=== PATIENT | female | born 1945 | race Caucasian/White ===

== ENCOUNTER 2018-09-25 13:00 | Inpatient (IN) | payer MEDICARE, OTHER ==
[~2018-09-25] VITALS: Ht 160 cm; Wt 96.5 kg
[~2018-09-25 13:00] MED LIST: ACYC800 PO; ALBU90OI INH; ALIS150T PO; AMLO10 PO; ASPI81CH; ASPI81EC PO; ATEN50; CARV6.25; CARV6.25 PO; CARVEDILOL; CEPH500 PO; CHOLESTEROL MED; Carvedilol12.5 MG PO; GLIP10; GLIP10 PO; HYDACE10B PO; HYDACE5 PO; IBUP600 PO; INSLI100I; INSLI100I SUBQ; INSULANI; INSULANI SUBQ; MELO7.5; METF500; METF500 PO; NAPR500 PO; Norco 5-325 Ta1 EACH PO; OXYACE5T PO; OXYACE7.5T; PARO10; PARO20; PARO20 PO; PARO30; PERM5TC TOP; PRAV20; PRAV20 PO; PRED20 PO; PROM25 PO; RAMI5; RAMI5 PO; SOLI5 PO; TRAM50 PO; Zofran Odt8 MG SL
[2018-09-25 14:16] LABS: Alanine Aminotransfer (ALT/SGP 11 U/L (12-78); Albumin, Blood 2.6 g/dL (3.4-5.0); Albumin/Globulin Ratio 0.5 (0.8-1.8); Alk Phos 99 U/L (50-136); Anion Gap 3 mmol/L (6-16); Aspartate Aminotrans (AST/SGOT 6 U/L (12-37); Bilirubin, Total 1.3 mg/dL (0.1-1.0); Blood Urea Nitrogen 10 mg/dL (8-24); Bun/Creatinine Ratio 18.6 (12.0-20.0); CO2, Blood 34 mmol/L (21-32); Calcium, Blood 8.2 mg/dL (8.5-10.1); Chloride, Blood 96 mmol/L (98-108); Creatinine, Blood 0.54 mg/dL (0.40-1.00); Globulin, Blood 5.4 g/dL (2.2-4.0); Glomerular Filtration Rate >60 (60-); Glucose, Blood 219 mg/dL (70-99); Potassium, Blood 3.4 mmol/L (3.5-5.5); Sodium, Blood 133 mmol/L (136-145)
[2018-09-25 14:19] LABS: BASOPHILS ABSOLUTE AUTO 0.02 K/mm3 (0.00-0.23); BASOPHILS PERCENT AUTO 0 % (0-2); EOSINOPHILS ABSOLUTE AUTO 0.01 K/mm3 (0.00-0.68); EOSINOPHILS PERCENT AUTO 0 % (0-6); Hematocrit 38.7 % (33.0-51.0); Hemoglobin 12.2 g/dL (11.5-16.0); IMMATURE GRAN ABSOLUTE AUTO 0.06 K/mm3 (0.00-0.10); IMMATURE GRAN PERCENT AUTO 1 % (0-1); LYMPHOCYTES ABSOLUTE AUTO 1.23 K/mm3 (0.84-5.20); LYMPHOCYTES PERCENT AUTO 10 % (21-46); MONOCYTES ABSOLUTE AUTO 1.21 K/mm3 (0.16-1.47); MONOCYTES PERCENT AUTO 10 % (4-13); Mean Corpuscular HGB 26.4 pg (26.0-34.0); Mean Corpuscular HGB Conc 31.5 g/dL (31.5-36.5); Mean Corpuscular Volume 84 fL (80-100); Mean Platelet Volume 9.6 fL (9.1-12.4); NEUTROPHILS ABSOLUTE AUTO 10.14 K/mm3 (1.96-9.15); NEUTROPHILS PERCENT AUTO 80 % (41-73); Platelet Count 358 K/mm3 (150-400); RDW Coefficient Variation 15.1 % (11.7-14.2); RDW Standard Deviation 46.3 fL (35.1-46.3); Red Blood Cell Count 4.62 M/mm3 (3.80-5.20); White Blood Cell Count 12.67 K/mm3 (4.00-11.30)
[2018-09-25 15:08] LABS: International Normalized Ratio 1.11; Prothrombin Time Results 11.7 Sec (9.7-11.5)
--- NOTE | 2018-09-25 18:24 | NUR ---
HANDOFF/TRANSFER NOTE RECEIVED HANDOFF REPORT FROM ER NURSE VILMA. PT IS 73. ADMIT FOR SEPSIS/PNEUMONIA SECONDARY TO FLU. PT IS FULL CODE. PT CAME TO FLOOR HYPERTENSIVE, TACHYCARDIC, AND TACHYPNEIC WITH A LOW GRADE FEVER . PT DENIES TAKING MORNING MEDICATIONS. I CALLED HOSPITALIST AND HE ORDERED BP MEDS TO BE GIVEN NOW. PT HX:DM2, HTN, ASTHMA, COPD, HERNIA. SHE DOES HAVE A POORLY HEALED LARGE SCAB ON HER ABDOMEN. I WAS TOLD SHE IS A&O X4 WHEN AWAKE, I DISAGREE AT THIS TIME. I DO FIND HER TO BE CONFUSED AND UNAWARE OF HER OWN LIMITATIONS. SHE IS AT LEAST A 1 PERSON ASSIST W/A FWW. SHE REFUSES TO USE A BSC AT THIS TIME. SHE NORMALLY USES A CANE AT HOME. SHE IS ON 2 LPM VIA NC. HER LUNGS ARE DIM THROUGHOUT. ADA DIET AND ACHS - LOW SLIDING SCALE. SHE SEEMED TO CHOKE WHEN I GAVE HER SIPS OF WATER WITH HER MEDS UPON ARRIVAL. JIM HOSE IS ORDERED. SHE IS IN A CHAIR AT PRESENT WITH AN ALARM SET
[2018-09-26 02:28] LABS: Influenza A Negative (NEGATIVE); Influenza B Negative (NEGATIVE)
[2018-09-26 05:31] LABS: BASOPHILS ABSOLUTE AUTO 0.02 K/mm3 (0.00-0.23); BASOPHILS PERCENT AUTO 0 % (0-2); EOSINOPHILS ABSOLUTE AUTO 0.04 K/mm3 (0.00-0.68); EOSINOPHILS PERCENT AUTO 0 % (0-6); Hematocrit 35.3 % (33.0-51.0); Hemoglobin 10.8 g/dL (11.5-16.0); IMMATURE GRAN ABSOLUTE AUTO 0.04 K/mm3 (0.00-0.10); IMMATURE GRAN PERCENT AUTO 0 % (0-1); LYMPHOCYTES ABSOLUTE AUTO 1.49 K/mm3 (0.84-5.20); LYMPHOCYTES PERCENT AUTO 14 % (21-46); MONOCYTES ABSOLUTE AUTO 1.26 K/mm3 (0.16-1.47); MONOCYTES PERCENT AUTO 12 % (4-13); Mean Corpuscular HGB Conc 30.6 g/dL (31.5-36.5); Mean Corpuscular Volume 85 fL (80-100); Mean Platelet Volume 9.6 fL (9.1-12.4); NEUTROPHILS ABSOLUTE AUTO 7.71 K/mm3 (1.96-9.15); NEUTROPHILS PERCENT AUTO 73 % (41-73); Platelet Count 331 K/mm3 (150-400); RDW Coefficient Variation 15.1 % (11.7-14.2); RDW Standard Deviation 47.3 fL (35.1-46.3); Red Blood Cell Count 4.15 M/mm3 (3.80-5.20); White Blood Cell Count 10.56 K/mm3 (4.00-11.30)
[2018-09-26 06:06] LABS: Anion Gap 4 mmol/L (6-16); Blood Urea Nitrogen 10 mg/dL (8-24); Bun/Creatinine Ratio 19.5 (12.0-20.0); CO2, Blood 31 mmol/L (21-32); Calcium, Blood 7.8 mg/dL (8.5-10.1); Chloride, Blood 101 mmol/L (98-108); Creatinine, Blood 0.51 mg/dL (0.40-1.00); Glomerular Filtration Rate >60 (60-); Glucose, Blood 185 mg/dL (70-99); Potassium, Blood 3.6 mmol/L (3.5-5.5); Sodium, Blood 136 mmol/L (136-145)
--- NOTE | 2018-09-26 06:42 | NUR ---
NOC SHIFT SUMMARY PT HAS BEEN VERY ANXIOUS THIS NIGHT. VS HAVE BEEN STABLE. SHE IS GENERALY VERY WEAK AND UNSTEADY ON HER FEET. SHE HAS ATTEMPTED MULTIPLE TIMES TO GET OUT OF BED WITHOUG USING HER CALL LIGHT TO SUMMON ASSISTENCE. BECAME NECESSARY TO RESTRAIN PT WITH IVY VEST SHE IS A STONG FALL RISK. ORDER FOR IVY OBTIANED AT 0149 THIS NIGHT. PT HAS TOLERATED IVY WELL. PT IS CURRENTLY SLEEPING. RESP ARE EVEN AND UNLABORED. CALLED TO DAUGHTER, ZENIA, THIS MORNING TO LET HER KNOW OF USE OF RESTAINT. SHE VERBALIZED UNDERSTANDING AND DID NOT VOICE ANY DISAGREEMENT WITH THIS. PT CURRENTLY APPEARS IN NO ACUTE DISTRESS. WILL CONTINUE TO MONITOR.
[2018-09-26 13:57] LABS: Campylobacter Sp Not Detected (NOT DETECT); E. Coli O157 Not Detected (NOT DETECT); Enteroaggregative E. coli-EAEC Not Detected (NOT DETECT); Enteropathogenic E. coli-EPEC Not Detected (NOT DETECT); Enterotoxigenic E. coli-ETEC Not Detected (NOT DETECT); Plesiomonas Shigelloides Not Detected (NOT DETECT); Salmonella Sp Not Detected (NOT DETECT); Shiga Toxin-prod E. coli-STEC Detected (NOT DETECT); Vibrio Cholerae Not Detected (NOT DETECT); Vibrio Sp Not Detected (NOT DETECT); Yersinia Enterocolitica Not Detected (NOT DETECT)
[2018-09-26 13:58] LABS: Adenovirus F 40/41 Not Detected (NOT DETECT); Astrovirus Not Detected (NOT DETECT); Cryptosporidium Not Detected (NOT DETECT); Cyclospora Cayetanensis Not Detected (NOT DETECT); Entamoeba Histolytica Not Detected (NOT DETECT); Giardia Lamblia Not Detected (NOT DETECT); Norovirus GI/GII Not Detected (NOT DETECT); Rotavirus A Not Detected (NOT DETECT); Sapovirus Not Detected (NOT DETECT); Shigella/Enteroin E. coli-EIEC Not Detected (NOT DETECT)
--- NOTE | 2018-09-26 14:36 | NUR ---
Permission for care Patient gave nursing support worker permission to assist in providing care on 09.27.2018 from [phone]. Maye Massey
--- NOTE | 2018-09-26 17:35 | NUR ---
PATIENT A/O TO ALL, BUT STRUGGLES WITH FOLLOWING DIRECTIONS AND REQUIRES MULTIPLE QUES FOR SIMPLE TASK. LUNGS DIMINISHED THROUGHOUT, 3LO2 TO MAINTAIN SATS. PATIENT IN IVY VEST FOR SAFETY. CONTINUES TO TRY AND GET UP UNASSISTED. FALL PRECAUTIONS IN PLACE PER UNIT PROTOCOL. VSS THIS SHIFT. MULIPLE EPISODES OF DIARRHEA THIS SHIFT. GI PANEL CAME BACK POSITIVE FOR E. COLI WITH SHIGA TOXIN. PATIENT ON CONTACT PRECAUTIONS FOR THIS DUE TO INCONTINENCE. 20G IV TO L AC WNL AND SL BETWEEN ABX.
[2018-09-27 03:21] LABS: Source, Urine Clean Catch
[2018-09-27 03:23] LABS: Appearance, Urine Clear (Clear); Bilirubin, Urine Neg (Neg); Blood, Urine 3+ (Neg); Color, Urine Amber (P-Yellow); Glucose Qualitative, Urine 2+ (Neg); Ketones, Urine Neg (Neg); Leukocyte Esterase, Urine Neg (Neg); Nitrite, Urine Neg (Neg); Protein, Urine 2+ (Neg); Urobilinogen, Urine 2+ (Normal)
[2018-09-27 03:29] LABS: Bacteria Mod /hpf; Red Blood Cells, Urine 0-2 /hpf (0-2); Squamous Epithelial Cells Mod /hpf (Few)
--- NOTE | 2018-09-27 04:59 | NUR ---
SHIFT SUMMARY PT ADMITTED FOR SEPSIS SECONDARY TO PNEUMONIA. FULL CODE. ADA DIET. IVY VEST IN PLACE FOR SAFETY. CBG AT AC AND HS. LOVENOX FOR DVT PROPHYLAXIS. MEDICATIONS CRUSHED IN APPLESAUCE. 2 PERSON MAX ASSIST WITH TRANSFER TO BSC. 2L O2 VIA NC, PT DOES NOT USE O2 AT HOME PRIOR TO THIS HOSPITAL STAY. IVY ORDER RENEWAL DUE AT 0023 ON 09-28-18. 20G IV TO L AC. SPUTUM SAMPLE NEEDS COLLECTED TO CULTURE, UNABLE TO OBTAIN PT IS NOT COUGHING ANYTHING UP. UA SENT AND CULTURE IS PENDING. PT CAME TO [facility] ED ABOUT A WEEK PRIOR TO THIS ADMIT WITH THE FLU BUT DID NOT TEST POSITIVE FOR IT THIS VISIT. THE X-RAY DID SHOW BIBASILAR INFLILTRATES SUGGESTIVE OF PNEUMONIA. THE STOOL SAMPLE WAS POSITIVE FOR E. COLI WITH SHIGA TOXIN AND THE PT IS ON CONTACT PRECAUTIONS FOR THIS DUE TO INCONTINENCE. WAS THE RECOMMENDATION FROM INFECTION CONTROL PER REPORT. THE PT WAS VERY CONFUSED THIS NIGHT NOT REMEMBERING WHAT IS GOING ON AND SCREAMING ALL NIGHT LONG. PT DOES NOT USE CALL LIGHT APPROPRIATELY AND YELLS FREQUENTLY. THE PT IS VERY FORGETFUL AND ONCE GETTING UP FORGETS WHAT PT WAS DOING JUST SECONDS PRIOR. THE PT SLEPT FOR A FEW HOURS OFF AND ON THIS NIGHT BUT IS AWAKE AGAIN AT THIS TIME YELLING OUT. NO APPARENT SIGNS OF ACUTE DISTRESS. WILL CONTINUE TO MONITOR.
--- NOTE | 2018-09-27 19:07 | NUR ---
PT. BACK IN BED AFTER BEING UP FOR DINNER. PT. HAS SLEPT OFF AND ON T/O THE DAY. WHEN PT. IS IN BED SHE HOLLERS TO BE UP IN THE CHAIR AND WHEN SHES UP IN THE CHAIR SHE HOLLERS TO BE PUT BACK IN BED. DOES COOPERATE WITH TAKING MEDS. NO NOTEABLE CHANGES THIS SHIFT.
--- NOTE | 2018-09-28 04:37 | NUR ---
SHIFT SUMMARY NO APPARENT ACUTE CHANGES NOTED SO FAR THIS SHIFT. THE PT HAS APPEARED TO INCREASE HER STRENGTH AND HAS BEEN A 1 PERSON ASSIST MOST OF THE NIGHT TO THE BSC. THE PT CONTINUES TO BE IMPULSIVE AND WILL GET UP VERY QUICKLY OUT OF BED. HOWEVER, INCREASED SENSITIVITY ON PTS BED ALARM AND AM IN THE PROCESS OF TRIAL WITHOUT IVY VEST. THE PT STATED THAT IVY VEST WAS MAKING IT DIFFICULT FOR PT TO BREATHE AND WAS YELLING OUT AND SCREAMING FREQUENTLY. SINCE TRIAL OF REMOVING VEST PT HAS STILL GOTTEN UP WITH POOR SAFETY AWARENESS AND POOR BALANCE BUT YELLING AND SCREAMING HAS BEEN MINIMAL. PT LIKE TO SIT AT BEDSIDE AT TIMES WHICH WAS ALLOWED WITH SUPERVISION UNTIL PT BACK TO BED WITH ALARM. THE PT HAS NOT APPEARED TO SLEEP REGULARLY THIS NIGHT. THE PT DOES APPEAR TO BE RESTING IN BED AT THIS TIME WITH NO APPARENT SIGNS OF ACUTE DISTRESS. FREQUENT VISUAL CHECKS PT IS NOT ABLE TO MAKE NEEDS KNOWN. WILL CONTIUE MONITOR.
--- NOTE | 2018-09-28 14:45 | NUR ---
Pt. is in bed and is doing much better encouraged pt and prayed for pt.
--- NOTE | 2018-09-28 18:55 | NUR ---
PT. UP IN CHAIR HAS BEEN HOLLERING OUT HELP, HELP AND WHEN ASKED WHAT SHE WANTS SAYS "I DON'T KNOW". NO NOTEABLE CHANGES THIS SHIFT.
--- NOTE | 2018-09-29 05:22 | NUR ---
SHIFT SUMMARY THE PT HAS BEEN CONTINENT THE ENTIRE NIGHT WITH NO INCONTIENT EPISODES OBSERVED OR REPORTED. THE PT IS NO LONGER IN IVY VEST RESTRAINT. THE PT CONTINUES TO BE IMPULSIVE WITH POOR SAFETY AWARENESS AND DOES NOT USE CALL LIGHT APPROPRIATELY. HOWEVER, THE PT DID USE CALL LIGHT APPROPRIATELY A FEW TIMES SO FAR THIS SHIFT. THE PT STILL DEMONSTRATES CONFUSION. THE PT DID NOT APPEAR TO SLEEP WELL AND WAS AWAKE OFF AND ON THROUGHOUT THE NIGHT. THE PT IS UP IN CHAIR AT THIS TIME WITH NO APPARENT SIGNS OF ACUTE DISTRESS. FREQUENT VISUAL CHECKS AND ALARMS FOR SAFETY. WILL CONTINUE TO MONITOR.
[2018-09-29 05:28] LABS: BASOPHILS ABSOLUTE AUTO 0.02 K/mm3 (0.00-0.23); BASOPHILS PERCENT AUTO 0 % (0-2); EOSINOPHILS ABSOLUTE AUTO 0.01 K/mm3 (0.00-0.68); EOSINOPHILS PERCENT AUTO 0 % (0-6); Hematocrit 37.9 % (33.0-51.0); IMMATURE GRAN PERCENT AUTO 1 % (0-1); LYMPHOCYTES ABSOLUTE AUTO 1.71 K/mm3 (0.84-5.20); LYMPHOCYTES PERCENT AUTO 18 % (21-46); MONOCYTES ABSOLUTE AUTO 0.69 K/mm3 (0.16-1.47); MONOCYTES PERCENT AUTO 7 % (4-13); Mean Corpuscular HGB 25.5 pg (26.0-34.0); Mean Corpuscular HGB Conc 31.7 g/dL (31.5-36.5); NEUTROPHILS PERCENT AUTO 74 % (41-73); RDW Coefficient Variation 14.6 % (11.7-14.2); RDW Standard Deviation 42.8 fL (35.1-46.3); Red Blood Cell Count 4.71 M/mm3 (3.80-5.20); White Blood Cell Count 9.73 K/mm3 (4.00-11.30)
[2018-09-29 05:35] LABS: Anion Gap 6 mmol/L (6-16); Blood Urea Nitrogen 16 mg/dL (8-24); Bun/Creatinine Ratio 24.8 (12.0-20.0); CO2, Blood 29 mmol/L (21-32); Calcium, Blood 8.9 mg/dL (8.5-10.1); Chloride, Blood 100 mmol/L (98-108); Creatinine, Blood 0.65 mg/dL (0.40-1.00); Glomerular Filtration Rate >60 (60-); Glucose, Blood 136 mg/dL (70-99); Potassium, Blood 5.2 mmol/L (3.5-5.5); Sodium, Blood 135 mmol/L (136-145)
[2018-09-29 06:29] LABS: Mean Corpuscular Volume 81 fL (80-100); Platelet Count 311 K/mm3 (150-400)
--- NOTE | 2018-09-29 13:13 | NUR ---
Pt. is lying in bed resting seems to be getting better, offered prayers and spiritual support
--- NOTE | 2018-09-29 19:10 | NUR ---
PT. BACK IN IVY VEST THIS EVENING. WOULD NOT USE CALL LIGHT, KEPT JUMPING OUT OF CHAIR , VERY HIGH RISK FOR FALLS SO IVY BED REPLACED. NO OTHER NOTEABLE CHANGES THIS SHIFT.
--- NOTE | 2018-09-29 23:22 | NUR ---
09/29/18 2320 PT YELLING AND VERY AGITATED. TRYING TO GET OUT OF BED. WHEN SHE WAS UP IN CHAIR SHE WAS YELLING ABOUT WANTING TO GO TO BED. PT ONLY ALERT TO SELF AT PRESENT. DENIES BEING IN HOSPITAL. IVY VEST IN PLACE. HALDOL 2.5 MG IV GIVEN WHEN INFORMED MD OF PT'S CONTINUAL AGITATION AND YELLING.
--- NOTE | 2018-09-30 07:24 | NUR ---
09/30/18 0610 YELLING AGAIN THIS AM. HAS BEEN INSTRUCTED GRAIN I FARMWORKER SYSTEM BUT STATES "I FORGOT". SLEPT ONLY COUPLE OF HOURS AFTER HALDOL GIVEN. UP TO BSC FOR VOIDINGS. VERY DISORIENTED LAST NIGHT AFTER 10 PM. VITALS STABLE.
--- NOTE | 2018-09-30 09:49 | NUR ---
PATIENT WAS OFFERED A SHOWER THIS SHIFT AND DECLINED BY STATING "NO" TO ME
--- NOTE | 2018-09-30 13:38 | NUR ---
Met pt. sitting up on her be, wishing to get up , she is okay offered prayers fore her.
--- NOTE | 2018-09-30 17:43 | NUR ---
SHIFT SUMMARY PATIENT CALLS OUT, VERY FORGETFUL. SHE IS IN A IVY AND VERY IMPULSIVE. GETS MILDLY AGRESSIVE WHEN SHE IS NOT ALLOWED TO DO WHAT SHE WANTS. SHE WANTS TO BE IN THE CHAIR.
--- NOTE | 2018-10-01 07:04 | NUR ---
SHIFT SUMMARY PT IS A 73 Y/O FEMALE, ADMITTED FOR SEPSIS. SHE IS A&O X 2, WILL YELL OUT AND WILL NOT USE THE CALL LIGHT. SHE SLEPT OFF AN ON FOR A COUPLE OF HOURS DURING THE NIGHT, AND WAS UP BETWEEN THE CHAIR AND BED THE REST OF THE NIGHT. SHE DENIED ANY COMPLAINTS OF PAIN, NAUSEA OR SOB. VITALS REMAINED STABLE. NO OTHER ACUTE CHANGES IN PT CONDITION NOTED DURING THE NIGHT. WILL CONTINUE TO MONITOR AND TREAT PER EMAR.
[2018-10-01] MEDS ORDERED: AZIT500 PO (13:27)
[2018-10-01] MEDS ORDERED: PRED20 PO (13:28)
--- NOTE | 2018-10-01 14:18 | NUR ---
DISCHARGE NOTES IV REMOVED. PATIENT INSTRUCTIONS GONE OVER WITH THE FAMILY MEMBER. NO ACUTE CONCERNS FROM THE PATIENT'S FAMILY. PATIENT STILL NOT IN HER RIGHT MIND. GOING HOME TO 24 HOUR CARE WITH HOME HEALTH.
== END 2018-10-01 13:55 | disposition home health service (06) | DRG 871 ==
LOC: ER 13:00 → MEDS 15:45 → ENPENDDIS 10-01 12:39 → MEDS 10-01 13:55
PROVIDERS: Emergency Medicine; Internal Medicine; ADMIT Hospitalist
DX: A41.9 Sepsis, unspecified organism (principal); J18.1 Lobar pneumonia, unspecified organism; J96.21 Acute and chronic respiratory failure with hypoxia; F03.91 Unspecified dementia, unspecified severity, with behavioral disturbance; J44.0 Chronic obstructive pulmonary disease with (acute) lower respiratory infection; J44.1 Chronic obstructive pulmonary disease with (acute) exacerbation; I10 Essential (primary) hypertension; E11.9 Type 2 diabetes mellitus without complications; E78.5 Hyperlipidemia, unspecified; R19.7 Diarrhea, unspecified; B96.20 Unspecified Escherichia coli [E. coli] as the cause of diseases classified elsewhere
CPT/HCPCS: 36415; 71045; 80048; 80053; 81001; 82947; 83605; 84145; 85025; 85610; 85730; 87040; 87086; 87507; 87804; 93005; 93010; 94640; 94760; 96361; 96365; 97116; 97162; 97530; 99285-25; J0456; J0696; J1630; J1650; J3480; J7030; J7050; J7120; J7512

== ENCOUNTER 2018-10-18 12:58 | Inpatient (IN) | payer MEDICARE, OTHER ==
[~2018-10-18] VITALS: Ht 167.6 cm; Wt 91.2 kg
[~2018-10-18 12:58] MED LIST changes: +AZIT500 PO; +Ramipril10 MG PO
[2018-10-18 14:16] LABS: Source, Urine Catheter
[2018-10-18 14:32] LABS: Bilirubin, Urine Neg (Neg); Blood, Urine 1+ (Neg); Glucose Qualitative, Urine Neg (Neg); Ketones, Urine 1+ (Neg); Leukocyte Esterase, Urine Neg (Neg); Nitrite, Urine Neg (Neg); Protein, Urine Neg (Neg); Urobilinogen, Urine NORM (Normal)
[2018-10-18 14:32] LABS: BASOPHILS ABSOLUTE AUTO 0.03 K/mm3 (0.00-0.23); BASOPHILS PERCENT AUTO 0 % (0-2); EOSINOPHILS ABSOLUTE AUTO 0.16 K/mm3 (0.00-0.68); EOSINOPHILS PERCENT AUTO 2 % (0-6); Hemoglobin 12.1 g/dL (11.5-16.0); IMMATURE GRAN ABSOLUTE AUTO 0.02 K/mm3 (0.00-0.10); IMMATURE GRAN PERCENT AUTO 0 % (0-1); LYMPHOCYTES ABSOLUTE AUTO 1.48 K/mm3 (0.84-5.20); LYMPHOCYTES PERCENT AUTO 16 % (21-46); MONOCYTES ABSOLUTE AUTO 0.47 K/mm3 (0.16-1.47); MONOCYTES PERCENT AUTO 5 % (4-13); Mean Corpuscular HGB 26.8 pg (26.0-34.0); Mean Corpuscular HGB Conc 31.8 g/dL (31.5-36.5); Mean Corpuscular Volume 84 fL (80-100); NEUTROPHILS ABSOLUTE AUTO 6.94 K/mm3 (1.96-9.15); NEUTROPHILS PERCENT AUTO 76 % (41-73); RDW Coefficient Variation 16.4 % (11.7-14.2); RDW Standard Deviation 50.4 fL (35.1-46.3); Red Blood Cell Count 4.51 M/mm3 (3.80-5.20)
[2018-10-18 14:39] LABS: Mean Platelet Volume 10.5 fL (9.1-12.4); Platelet Count 252 K/mm3 (150-400)
[2018-10-18 14:43] LABS: Appearance, Urine Clear (Clear); Color, Urine Yellow (P-Yellow)
[2018-10-18 14:44] LABS: Bacteria Few /hpf; Red Blood Cells, Urine 0-2 /hpf (0-2); Squamous Epithelial Cells Few /hpf (Few); White Blood Cells, Urine Not Seen /hpf (0-5)
[2018-10-18 14:49] LABS: U Amphetamine Screen DETECTED; U Barbituate Screen Not Detected; U Benzodiazapine Screen Not Detected; U Buprenorphine Screen Not Detected; U Cannabinoids Screen Not Detected; U Cocaine Screen Not Detected; U Methadone Screen Not Detected; U Methamphetamine Screen DETECTED; U Opiates Screen Not Detected; U Oxycodone Screen Not Detected; U Phencyclidine Screen Not Detected; U Propoxyphene Screen Not Detected
[2018-10-18 14:50] LABS: Alanine Aminotransfer (ALT/SGP 15 U/L (12-78); Albumin, Blood 3.1 g/dL (3.4-5.0); Albumin/Globulin Ratio 0.7 (0.8-1.8); Alk Phos 80 U/L (50-136); Anion Gap 7 mmol/L (6-16); Aspartate Aminotrans (AST/SGOT 17 U/L (12-37); Bilirubin, Total 1.3 mg/dL (0.1-1.0); Blood Urea Nitrogen 24 mg/dL (8-24); Bun/Creatinine Ratio 33.3 (12.0-20.0); CO2, Blood 26 mmol/L (21-32); Calcium, Blood 8.2 mg/dL (8.5-10.1); Chloride, Blood 102 mmol/L (98-108); Creatinine, Blood 0.72 mg/dL (0.40-1.00); Ethanol (Alcohol), Blood, Med <3 mg/dL; Globulin, Blood 4.4 g/dL (2.2-4.0); Glomerular Filtration Rate >60 (60-); Glucose, Blood 174 mg/dL (70-99); Potassium, Blood 5.3 mmol/L (3.5-5.5); Sodium, Blood 135 mmol/L (136-145); Total Protein, Blood 7.5 g/dL (6.4-8.2)
[2018-10-18] MEDS ORDERED: AMLO10 PO (16:22)
[2018-10-18 18:36] LABS: CPK Creatine Kinase 60 U/L (26-193); Salicylate <1.7 mg/dL (2.8-20.0)
[2018-10-18 18:37] LABS: Acetaminophen, Random <2.0 ug/mL (10.0-30.0)
[2018-10-18 21:37] LABS: Alanine Aminotransfer (ALT/SGP 12 U/L (12-78); Albumin, Blood 2.8 g/dL (3.4-5.0); Albumin/Globulin Ratio 0.7 (0.8-1.8); Alk Phos 72 U/L (50-136); Anion Gap 7 mmol/L (6-16); Aspartate Aminotrans (AST/SGOT 10 U/L (12-37); Bilirubin, Total 1.2 mg/dL (0.1-1.0); Blood Urea Nitrogen 19 mg/dL (8-24); Bun/Creatinine Ratio 28.4 (12.0-20.0); CO2, Blood 26 mmol/L (21-32); Calcium, Blood 8.6 mg/dL (8.5-10.1); Chloride, Blood 105 mmol/L (98-108); Creatinine, Blood 0.67 mg/dL (0.40-1.00); Globulin, Blood 4.2 g/dL (2.2-4.0); Glomerular Filtration Rate >60 (60-); Glucose, Blood 113 mg/dL (70-99); Potassium, Blood 4.1 mmol/L (3.5-5.5); Sodium, Blood 138 mmol/L (136-145)
[2018-10-19 06:05] LABS: Hematocrit 37.2 % (33.0-51.0); Hemoglobin 11.7 g/dL (11.5-16.0); Mean Corpuscular HGB 26.7 pg (26.0-34.0); Mean Corpuscular HGB Conc 31.5 g/dL (31.5-36.5); Mean Corpuscular Volume 85 fL (80-100); Platelet Count 233 K/mm3 (150-400); RDW Coefficient Variation 16.7 % (11.7-14.2); Red Blood Cell Count 4.38 M/mm3 (3.80-5.20); White Blood Cell Count 7.26 K/mm3 (4.00-11.30)
[2018-10-19 06:27] LABS: Anion Gap 6 mmol/L (6-16); Blood Urea Nitrogen 18 mg/dL (8-24); Bun/Creatinine Ratio 28.8 (12.0-20.0); CO2, Blood 26 mmol/L (21-32); Calcium, Blood 8.9 mg/dL (8.5-10.1); Chloride, Blood 105 mmol/L (98-108); Creatinine, Blood 0.63 mg/dL (0.40-1.00); Glomerular Filtration Rate >60 (60-); Glucose, Blood 125 mg/dL (70-99); Magnesium, Blood 1.8 mg/dL (1.6-2.4); Sodium, Blood 137 mmol/L (136-145)
--- NOTE | 2018-10-19 07:34 | NUR ---
responds to voice, cooperative, room air, saline locked, walking rounds completed with day nurse
--- NOTE | 2018-10-19 15:07 | NUR ---
CALLED DR. HAYES; PT OPENS EYES SPONTANEOUSLY, FOLLOWS SIMPLE COMMANDS. DOES NOT ANSWER ORIENTATION QUESTIONS. INCONTINENT. ATTENDS IN PLACE. SHOWER COMPLETED.
--- NOTE | 2018-10-19 17:41 | NUR ---
PT ATTEMPTING TO CLIMB OUT OF BED. APPEARS DISORIENTED, CONFUSED. NOT COMMUNICATING VERBALLY, BLANK STARE. ASSISTED BACK TO BED DR. HAYSE NOTIFIED.
--- NOTE | 2018-10-19 19:41 | NUR ---
SHIFT SUMMARY NOT RESPONDING VERBALLY TO QUESTIONS. INCONTINENT. PULL HUBER OUT LAST SHIFT. ATTEMPTS AT TIMES TO CLIMB OUT OF BED; BED ALARM ON. ABLE TO SWALLOW SMALL AMOUNT OF WATER REFUSED ANY PUDDING OR JELLO. VSS. METH+ ON ADMIT.
--- NOTE | 2018-10-20 05:20 | NUR ---
VSS, AFEBRILE, PT OPENS HER EYES BUT DOES NOT MAKE ANY ATTEMPT TO COMMUNICATE BEYOND PRIMATIVE GRUNTS, PT IS COMBATIVE/RESISTANT TO CARE, KICKS AND SCRATCHES AT CAREGIVERS, OTHERWISE SLEEPS W/OUT COMPLAINTS. PT HAS AN OPENING IN THE MIDLINE OF COMPA ABD THAT IS REPORTED TO BE THE RESULT OF BARIATRIC SURGERY, OF UNKNOWN TYPE. NO SIGNIFICANT CHANGES NOTED. WILL REPORT TO ON-COMING SHIFT.
--- NOTE | 2018-10-20 16:09 | NUR ---
SHE HAS A NEW ORDER FOR TO SEE HER BUT SHE REMAINS NONVERBAL EXCEPT FOR 1 "YES" TODAY. SHE WAS INCONTINENT OF A LITTLE URINE TODAY, THEN VOIDED 60 MLS IN THE BSC. IT WAS CONCENTRATED. 30 MIN LATER HER ALARM WENT OFF. SHE WAS GETTING OUT OF BED TO VOID. SHE WAS ASSISTED. SHE VOIDED 600 MLS. SHE WAS NOT USING HER R ARM AT ALL DURING THESE 2 ACTIVITIES. IN FACT, IT HUNG TO HER SIDE. SHE DID NOT FOLLOW DIRECTIONS. CT HEAD WAS DONE. OXIMETRY CONTINUES. SHE IS WEARING A HOSPITAL GOWN AND HAS NOT PULLED IT OFF TODAY.THE ANIMAL HUSBANDRY TEACHER OFFICE CALLED TO SEE IF SHE IS ABLE TO VERBALIZE YET. I SAID NOT YET. SHE DID USE HER R ARM WHEN SHE WAS EATING FINGER FOOD.
--- NOTE | 2018-10-20 17:12 | NUR ---
Pt not able to give any information at this time. She is not oriented, has had episodes of agitation. Discussed in foster care therapistmanager telemarketing this morning. feels that placement would likely be the best thing for this patient. Dhara, associate media planner, reports that she spoke to daughter, Elen, this morning and would like to take the patient home as early as today. Called and spoke with daughter, Elen. Elen states that she has seen a steep decline in the pt's overall health in the last 6 months, with an even steeper decline in the last 3 weeks. 6-7 months ago, Elen reports that the pt was able to carry on decent conversations and was driving. Elen reports that now, pt is not able to communicate as before and furthermore, pt needs assistance and supervision with ambulation. She has been using a cane off and on, along with family to help support her. Since pt has a dementia diagnosis and she is unable to ambulate without supervision, pt does qualify for hospice care. I brought this up with Elen and she immediately states, "that's what we want then. We had hospice care with my dad and that was great." She continues to tell me that her brother and her sister live in the home with her. She would like pt to discharge PATO with referal to hospice. She is coming in [facility] to see pt. Will plan on following up with and the care managment team tomorrow to discuss this possibility. The main concern is the drug managment in the home, if there is meth there, there is likely risk for diversion of the narcotics and benzos. Will remain available and follow up in AM.
--- NOTE | 2018-10-20 22:44 | NUR ---
2129 PTS SON AT SIDE AND REQUESTED UPDATE ON CURRENT MEDICAL STATUS WITH THIS NURSE PROVIDING REVIEW. PTS SON STATED, "I HAVE KICKED OUT TWO ROOMMATES WHOM HAVE BEEN USING METH IN THE PAST FROM MY HOME". PTS SON ASKED WHERE PT WILL BE DISCHARGED TOO WITH THIS NURSE DEFERING QUESTION TO BE ANSWERED BY MD AND HEAVY EQUIPMENT OPERATOR AT THIS TIME WITH ACKNOWLEDGEMENT NOTED.
--- NOTE | 2018-10-21 04:41 | NUR ---
73 Y/O FEMALE RESTED COMFORTABLY ALL EVENING. PT REQUIRED TURNS EVERY 2 HOURS BY STAFF, PT NONVERBAL TO STAFF WITH EYES OPENED DURING MOVES, INCONTINENT URINE. PT APPEARS TO HAVE NOT PAIN, NO EPISODES NAUSEA NOTED. PTS BED ALARM APPLIED, BED LOW POSITION, CALL LIGHT AT SIDE.
[2018-10-21 05:19] LABS: BASOPHILS ABSOLUTE AUTO 0.03 K/mm3 (0.00-0.23); BASOPHILS PERCENT AUTO 1 % (0-2); EOSINOPHILS ABSOLUTE AUTO 0.24 K/mm3 (0.00-0.68); EOSINOPHILS PERCENT AUTO 4 % (0-6); Hematocrit 36.5 % (33.0-51.0); Hemoglobin 11.4 g/dL (11.5-16.0); IMMATURE GRAN ABSOLUTE AUTO 0.01 K/mm3 (0.00-0.10); IMMATURE GRAN PERCENT AUTO 0 % (0-1); LYMPHOCYTES ABSOLUTE AUTO 1.71 K/mm3 (0.84-5.20); LYMPHOCYTES PERCENT AUTO 32 % (21-46); MONOCYTES ABSOLUTE AUTO 0.49 K/mm3 (0.16-1.47); MONOCYTES PERCENT AUTO 9 % (4-13); Mean Corpuscular HGB 27.1 pg (26.0-34.0); Mean Corpuscular HGB Conc 31.2 g/dL (31.5-36.5); Mean Corpuscular Volume 87 fL (80-100); Mean Platelet Volume 9.3 fL (9.1-12.4); NEUTROPHILS ABSOLUTE AUTO 2.95 K/mm3 (1.96-9.15); NEUTROPHILS PERCENT AUTO 54 % (41-73); Platelet Count 222 K/mm3 (150-400); RDW Coefficient Variation 17.2 % (11.7-14.2); White Blood Cell Count 5.43 K/mm3 (4.00-11.30)
[2018-10-21 06:04] LABS: Anion Gap 2 mmol/L (6-16); Blood Urea Nitrogen 21 mg/dL (8-24); Bun/Creatinine Ratio 27.2 (12.0-20.0); CO2, Blood 33 mmol/L (21-32); Calcium, Blood 8.7 mg/dL (8.5-10.1); Chloride, Blood 107 mmol/L (98-108); Creatinine, Blood 0.77 mg/dL (0.40-1.00); Glomerular Filtration Rate >60 (60-); Glucose, Blood 140 mg/dL (70-99); Sodium, Blood 142 mmol/L (136-145)
--- NOTE | 2018-10-21 18:28 | NUR ---
SHE SAT IN THE CHAIR FOR ALL MEALS TODAY. SHE EATS WELL. SHE HAS HAD FINGER FOODS. WILL ADVANCE HER FOR TOMORROW TO SEE IF SHE CAN HANDLE IT. NO PRN'S GIVEN EXCEPT MOM FOR BOWEL CARE THIS EVENING. VSS. SON JAILYN VISITED FOR A FEW MINUTES. NO OTHER VISITORS.
--- NOTE | 2018-10-22 04:24 | NUR ---
SHIFT SUMMARY PATIENT HAD NO ACUTE CHANGES OBSERVED THIS SHIFT. AXOX 2 AND ONE ASSIST W/GAIT/FWW TO BS. CBG 164. PIV REMAINS INTACT. NON-VERBAL WITH A FEW YES/NO ANSWERS. NO S/SX OF PAIN, SOB, AND N/V. TAKES MEDICATION WHOLE WITH WATER. SLEPT MOST OF THE SHIFT. CALL LIGHT IN REACH. BED IN LOWEST POSITION. WILL CONTINUE TO MONITOR UNTIL DAY SHIFT NURSE ASSUMES CARE.
--- NOTE | 2018-10-22 11:49 | NUR ---
PATIENT HAD TO BE WOKEN FOR MORNING MEDS. VERY CONFUSED AND HARD TO AROUSE. TOOK NURSE AND AIDE BOTH TO GET HER IN SITTING POSITION. PLACED ON BEDSIDE COMMODE AND GIVEN BEDBATH. BEDDING CHANGED. PATIENT PICKED SCAB OFF OF WOUND ON BELLY. THIS NURSE APPLIED A DRESSIGN TO IT TO PREVENT FURTHER PICKING.
--- NOTE | 2018-10-22 12:39 | NUR ---
SPOKE WITH HOME HEALTH NURSE (TIM) ON NEED FOR HOME HEALTH REEVALUATION. PT WILL NOW BE DISCHARGING HOME TO DAUGHTER'S HOUSE INSTEAD OF HER OWN RESIDENCE. FAXED INFORMATION TO [phone]
--- NOTE | 2018-10-22 14:37 | NUR ---
PATIENT HAS NOT TRIED TO GET OUT OF BED. SHE IS STILL CONFUSED AND DOES NOT SPEAK MORE THAN ONE WORD AND IT IS USALLY YES OR NO REPEATED. SHE DID NOT RECOGNIZE HER FRIEND WHO CAME TO VISIT. SHE HAS A FLAT AFFECT. SHE WAS ASSISTED TO THE BEDSIDE COMMODE AND IS A STRONG 2 ASSIST. DRESSING APPLIED TO BELLY PREVIOUSLY NOTED. WILL BE TRANSFERRING TO 333
--- NOTE | 2018-10-22 18:00 | NUR ---
LEFT VOICE MESSAGE WITH PT'S DAUGHTER THAT PT WOULD BE READY FOR TRANSPORT HOME TOMORROW A.M. BEFORE 12PM.
--- NOTE | 2018-10-22 18:05 | NUR ---
RECEIVED PATIENT AROUND 1500. CONFUSED. WAS INITIALLY VERY DROWSEY, BUT THEN GOT UP ON HER OWN AT ABOUT 1600. WHEN ASKED WHAT SHE WAS DOING STS "BATHROOM". ONE PERSON ASSIST TO BSC THEN BACK TO BED. WHEN ASKED IF SHE KNOWS WHERE SHE IS, STARES THEN STS "NO". DRESSING TO ABD DRY AND INTACT. BED ALARM ON. BED IN LOW PSOITION. TM.
--- NOTE | 2018-10-23 07:25 | NUR ---
alert but confused, family not in agreement as to placement, call light in reach, saline locked, room air, returning staff reported to
--- NOTE | 2018-10-23 10:53 | NUR ---
LEFT VOICEMAIL FOR PT'S DAUGHTER (ZENIA) THAT PT WOULD BE READY FOR DC AND TRANSFER HOME BEFORE 12PM TODAY. DR. HAYES REPORTS PT REMAINS APPROPRIATE TO DISCHARGE HOME WITH HOME HEALTH. HH ORDERS FAXED.
[2018-10-23] MEDS ORDERED: QUET25 PO (13:16)
--- NOTE | 2018-10-23 13:50 | NUR ---
REVIEW INSTRUCTIONS WITH DAUGHTER. AWARE BRE MANCINI WILL CALL HER. AWARE TO GRANTS AND CONTRACTS ASSISTANT MEDS AT [facility]. AWARE CAN RETURN TO E.R. IF ANY PROBLEMS. IN W/C W/HUB BANDER TO POV
== END 2018-10-23 13:59 | disposition home or self-care (01) | DRG 917 ==
LOC: ER 12:58 → MEDS 12:59 → ENPENDDIS 10-22 10:35 → MEDS 10-22 15:00
PROVIDERS: Emergency Medicine; Nurse Practitioner Acute Care; ADMIT Hospitalist
DX: T43.621A Poisoning by amphetamines, accidental (unintentional), initial encounter (principal); G92 Toxic encephalopathy; F15.929 Other stimulant use, unspecified with intoxication, unspecified; E11.9 Type 2 diabetes mellitus without complications; J44.9 Chronic obstructive pulmonary disease, unspecified; I10 Essential (primary) hypertension; Z91.19 Patient's noncompliance with other medical treatment and regimen; F03.90 Unspecified dementia, unspecified severity, without behavioral disturbance, psychotic disturbance, mood disturbance, and anxiety; E66.01 Morbid (severe) obesity due to excess calories; G47.33 Obstructive sleep apnea (adult) (pediatric); E78.5 Hyperlipidemia, unspecified; F32.9 Major depressive disorder, single episode, unspecified; Z98.84 Bariatric surgery status
CPT/HCPCS: 36415; 51702; 70450; 71045; 80048; 80053; 81001; 82140; 82550; 82947; 83605; 83735; 85025; 85027; 93005; 93010; 94640; 94660; 94760; 94762; 96361-59; 96374-59; 99285-25; G0480; J1650; J2060; J2250; J7030

== ENCOUNTER 2023-05-20 11:10 | Inpatient (IN) | payer MEDICARE, OTHER ==
[~2023-05-20] VITALS: Ht 167.6 cm; Wt 57.0 kg
[~2023-05-20 11:10] MED LIST changes: +QUET25 PO
[2023-05-20 12:37] LABS: BASOPHILS ABSOLUTE AUTO 0.03 K/mm3 (0.00-0.23); BASOPHILS PERCENT AUTO 0 % (0-2); EOSINOPHILS ABSOLUTE AUTO 0.01 K/mm3 (0.00-0.68); EOSINOPHILS PERCENT AUTO 0 % (0-6); Hematocrit 40.3 % (33.0-51.0); IMMATURE GRAN ABSOLUTE AUTO 0.08 K/mm3 (0.00-0.10); IMMATURE GRAN PERCENT AUTO 1 % (0-1); LYMPHOCYTES ABSOLUTE AUTO 1.05 K/mm3 (0.84-5.20); LYMPHOCYTES PERCENT AUTO 8 % (21-46); MONOCYTES ABSOLUTE AUTO 0.81 K/mm3 (0.16-1.47); MONOCYTES PERCENT AUTO 6 % (4-13); Mean Corpuscular HGB 31.1 pg (26.0-34.0); Mean Corpuscular HGB Conc 34.7 g/dL (31.5-36.5); Mean Corpuscular Volume 90 fL (80-100); Mean Platelet Volume 9.7 fL (9.1-12.4); NEUTROPHILS ABSOLUTE AUTO 11.81 K/mm3 (1.96-9.15); NEUTROPHILS PERCENT AUTO 86 % (41-73); Platelet Count 299 K/mm3 (150-400); RDW Coefficient Variation 13.7 % (11.7-14.2); RDW Standard Deviation 45.1 fL (35.1-46.3); White Blood Cell Count 13.79 K/mm3 (4.00-11.30)
[2023-05-20 12:47] LABS: Alanine Aminotransfer (ALT/SGP 17 U/L (12-78); Albumin, Blood 3.1 g/dL (3.4-5.0); Albumin/Globulin Ratio 0.7 (0.8-1.8); Alk Phos 62 U/L (50-136); Anion Gap 5 mmol/L (6-16); Aspartate Aminotrans (AST/SGOT 22 U/L (12-37); Bilirubin, Total 1.2 mg/dL (0.1-1.0); Blood Urea Nitrogen 31 mg/dL (8-24); CO2, Blood 29 mmol/L (21-32); Calcium, Blood 8.6 mg/dL (8.5-10.1); Chloride, Blood 112 mmol/L (98-108); Creatinine, Blood 0.71 mg/dL (0.40-1.00); Ethanol (Alcohol), Blood, Med <3 mg/dL; Globulin, Blood 4.2 g/dL (2.2-4.0); Glomerular Filtration Rate 88 (60-); Glucose, Blood 157 mg/dL (70-99); Potassium, Blood 3.3 mmol/L (3.5-5.5); Sodium, Blood 146 mmol/L (136-145); Total Protein, Blood 7.3 g/dL (6.4-8.2)
[2023-05-20 13:03] LABS: Source, Urine Straight Cath
[2023-05-20 13:10] LABS: Appearance, Urine Cloudy (Clear); Bilirubin, Urine Neg (Neg); Blood, Urine 5+ (Neg); Color, Urine Yellow (P-Yellow); Glucose Qualitative, Urine Neg (Neg); Ketones, Urine 1+ (Neg); Leukocyte Esterase, Urine 3+ (Neg); Nitrite, Urine Neg (Neg); Protein, Urine 3+ (Neg); Specific Gravity, Urine 1.015 (1.003-1.022); Urobilinogen, Urine NORM (Normal)
[2023-05-20 13:19] LABS: Bacteria Many /hpf; Red Blood Cells, Urine 25-50 /hpf (0-2); Squamous Epithelial Cells Few /hpf (Few); White Blood Cells, Urine TNTC /hpf (0-5)
[2023-05-20 13:20] LABS: Amorphous Light (0-Heavy)
[2023-05-20 15:28] LABS: U Amphetamine Screen Not Detected; U Barbituate Screen Not Detected; U Benzodiazapine Screen Not Detected; U Buprenorphine Screen Not Detected; U Cannabinoids Screen Not Detected; U Cocaine Screen Not Detected; U Methadone Screen Not Detected; U Methamphetamine Screen Not Detected; U Opiates Screen Not Detected; U Oxycodone Screen Not Detected; U Phencyclidine Screen Not Detected
[2023-05-20 16:44] VITALS: BP 138/67
[2023-05-20 20:29] VITALS: BP 157/105
[2023-05-21 05:16] LABS: BASOPHILS ABSOLUTE AUTO 0.02 K/mm3 (0.00-0.23); BASOPHILS PERCENT AUTO 0 % (0-2); EOSINOPHILS PERCENT AUTO 1 % (0-6); Hematocrit 30.7 % (33.0-51.0); Hemoglobin 10.4 g/dL (11.5-16.0); IMMATURE GRAN ABSOLUTE AUTO 0.03 K/mm3 (0.00-0.10); IMMATURE GRAN PERCENT AUTO 0 % (0-1); LYMPHOCYTES ABSOLUTE AUTO 1.59 K/mm3 (0.84-5.20); LYMPHOCYTES PERCENT AUTO 18 % (21-46); MONOCYTES ABSOLUTE AUTO 0.62 K/mm3 (0.16-1.47); MONOCYTES PERCENT AUTO 7 % (4-13); Mean Corpuscular HGB 30.6 pg (26.0-34.0); Mean Corpuscular HGB Conc 33.9 g/dL (31.5-36.5); Mean Corpuscular Volume 90 fL (80-100); Mean Platelet Volume 10.1 fL (9.1-12.4); NEUTROPHILS ABSOLUTE AUTO 6.27 K/mm3 (1.96-9.15); NEUTROPHILS PERCENT AUTO 73 % (41-73); Platelet Count 241 K/mm3 (150-400); RDW Coefficient Variation 13.7 % (11.7-14.2); RDW Standard Deviation 45.2 fL (35.1-46.3); White Blood Cell Count 8.63 K/mm3 (4.00-11.30)
[2023-05-21 05:55] VITALS: BP 133/115
[2023-05-21 05:59] LABS: Bun/Creatinine Ratio 41.1 (12.0-20.0); Calcium, Blood 7.8 mg/dL (8.5-10.1); Creatinine, Blood 0.61 mg/dL (0.40-1.00); Potassium, Blood 3.4 mmol/L (3.5-5.5)
[2023-05-21 08:07] VITALS: BP 142/66
[2023-05-21 16:25] VITALS: BP 105/64
[2023-05-21 19:28] VITALS: BP 121/49
[2023-05-22 02:16] VITALS: BP 134/60
[2023-05-22 07:16] VITALS: BP 139/54
[2023-05-22 15:36] VITALS: BP 149/64
[2023-05-22 19:29] VITALS: BP 133/63
[2023-05-23 02:17] VITALS: BP 141/65
[2023-05-23 05:45] LABS: BASOPHILS ABSOLUTE AUTO 0.02 K/mm3 (0.00-0.23); BASOPHILS PERCENT AUTO 0 % (0-2); EOSINOPHILS ABSOLUTE AUTO 0.07 K/mm3 (0.00-0.68); EOSINOPHILS PERCENT AUTO 1 % (0-6); Hematocrit 30.2 % (33.0-51.0); Hemoglobin 10.4 g/dL (11.5-16.0); IMMATURE GRAN ABSOLUTE AUTO 0.03 K/mm3 (0.00-0.10); IMMATURE GRAN PERCENT AUTO 0 % (0-1); LYMPHOCYTES ABSOLUTE AUTO 1.81 K/mm3 (0.84-5.20); LYMPHOCYTES PERCENT AUTO 23 % (21-46); MONOCYTES ABSOLUTE AUTO 0.62 K/mm3 (0.16-1.47); MONOCYTES PERCENT AUTO 8 % (4-13); Mean Corpuscular HGB Conc 34.4 g/dL (31.5-36.5); Mean Corpuscular Volume 90 fL (80-100); Mean Platelet Volume 9.8 fL (9.1-12.4); NEUTROPHILS ABSOLUTE AUTO 5.24 K/mm3 (1.96-9.15); NEUTROPHILS PERCENT AUTO 67 % (41-73); Platelet Count 263 K/mm3 (150-400); RDW Coefficient Variation 13.1 % (11.7-14.2); Red Blood Cell Count 3.35 M/mm3 (3.80-5.20); White Blood Cell Count 7.79 K/mm3 (4.00-11.30)
[2023-05-23 06:25] LABS: Bun/Creatinine Ratio 32.5 (12.0-20.0); Calcium, Blood 7.8 mg/dL (8.5-10.1); Creatinine, Blood 0.58 mg/dL (0.40-1.00); Potassium, Blood 3.8 mmol/L (3.5-5.5)
[2023-05-23 07:13] VITALS: BP 144/77
[2023-05-23 15:57] VITALS: BP 132/42
[2023-05-23 20:23] VITALS: BP 132/58
[2023-05-24 04:31] VITALS: BP 157/82
[2023-05-24 07:15] VITALS: BP 161/53
[2023-05-24 15:51] VITALS: BP 127/87
[2023-05-24 19:39] VITALS: BP 124/48
[2023-05-25 03:38] VITALS: BP 140/62
[2023-05-25 08:28] VITALS: BP 134/59
[2023-05-25 15:32] VITALS: BP 106/64
[2023-05-25 19:54] VITALS: BP 98/70
[2023-05-26 05:12] VITALS: BP 128/74
[2023-05-26 07:48] VITALS: BP 137/58
[2023-05-26 14:57] VITALS: BP 107/62
[2023-05-26 19:30] VITALS: BP 105/41
[2023-05-27 03:14] VITALS: BP 119/88
[2023-05-27 07:05] VITALS: BP 146/59
[2023-05-27 20:15] VITALS: BP 119/65
[2023-05-28 07:17] VITALS: BP 134/64
[2023-05-28 17:05] VITALS: BP 105/39
[2023-05-29 07:26] VITALS: BP 138/53
[2023-05-29 16:12] VITALS: BP 102/42
[2023-05-29 19:21] VITALS: BP 110/44
[2023-05-30 02:36] VITALS: BP 126/49
[2023-05-30 07:06] VITALS: BP 115/43
[2023-05-30 15:20] VITALS: BP 107/88
[2023-05-30 20:24] VITALS: BP 95/51
[2023-05-31 03:19] VITALS: BP 101/41
[2023-05-31 08:06] VITALS: BP 111/96
[2023-05-31 14:35] VITALS: BP 122/56
[2023-05-31 19:27] VITALS: BP 125/45
[2023-05-31 19:41] VITALS: BP 105/88
[2023-06-01 03:00] VITALS: BP 99/61
[2023-06-01 09:41] VITALS: BP 114/48
[2023-06-01 14:52] VITALS: BP 114/54
[2023-06-01 19:45] VITALS: BP 123/58
[2023-06-02 03:35] VITALS: BP 127/56
[2023-06-02 07:06] VITALS: BP 111/50
[2023-06-02 15:09] VITALS: BP 118/81
[2023-06-02 19:57] VITALS: BP 113/50
[2023-06-03 02:38] VITALS: BP 113/97
[2023-06-03 07:39] VITALS: BP 110/49
[2023-06-03 16:06] VITALS: BP 101/43
[2023-06-03 20:32] VITALS: BP 100/42
[2023-06-04 04:01] VITALS: BP 115/47
[2023-06-04 07:41] VITALS: BP 104/45
[2023-06-04 15:30] VITALS: BP 107/58
[2023-06-04 19:49] VITALS: BP 116/43
[2023-06-05 08:14] VITALS: BP 97/43
[2023-06-05 14:55] VITALS: BP 116/50
[2023-06-05 19:51] VITALS: BP 125/45
[2023-06-06 02:29] VITALS: BP 117/51
[2023-06-06 07:30] VITALS: BP 122/56
[2023-06-06 15:36] VITALS: BP 94/54
[2023-06-06 20:09] VITALS: BP 127/49
[2023-06-07 02:13] VITALS: BP 118/58
[2023-06-07 07:42] VITALS: BP 106/49
[2023-06-07 15:46] VITALS: BP 114/48
[2023-06-07 20:34] VITALS: BP 124/47
[2023-06-08 02:39] VITALS: BP 123/43
[2023-06-08 07:36] VITALS: BP 119/48
[2023-06-08 15:33] VITALS: BP 114/53
[2023-06-08 19:11] VITALS: BP 116/40
[2023-06-09 02:22] VITALS: BP 116/49
[2023-06-09 07:18] VITALS: BP 124/48
[2023-06-09 15:26] VITALS: BP 103/44
[2023-06-09 19:29] VITALS: BP 119/52
[2023-06-10 04:25] VITALS: BP 131/53
[2023-06-10 07:25] VITALS: BP 121/51
[2023-06-10 17:51] VITALS: BP 121/64
[2023-06-10 20:40] VITALS: BP 116/38
[2023-06-11 05:41] VITALS: BP 102/60
[2023-06-11 07:56] VITALS: BP 101/46
[2023-06-11 09:32] VITALS: BP 100/88
[2023-06-11 16:54] VITALS: BP 116/47
[2023-06-11 20:04] VITALS: BP 132/60
[2023-06-12 05:06] VITALS: BP 134/49
[2023-06-12 07:32] VITALS: BP 126/48
[2023-06-12 15:39] VITALS: BP 116/44
[2023-06-12 19:39] VITALS: BP 108/50
[2023-06-13 03:22] VITALS: BP 132/64
[2023-06-13 07:51] VITALS: BP 115/46
[2023-06-13 15:45] VITALS: BP 110/46
[2023-06-13 19:35] VITALS: BP 114/71
[2023-06-14 05:02] VITALS: BP 128/92
[2023-06-14 05:04] VITALS: BP 106/61
[2023-06-14 07:26] VITALS: BP 120/55
[2023-06-14 14:59] VITALS: BP 109/48
[2023-06-14 19:51] VITALS: BP 115/48
[2023-06-15 04:24] VITALS: BP 136/97
[2023-06-15 07:33] VITALS: BP 129/50
[2023-06-15 14:49] VITALS: BP 111/45
[2023-06-15 19:47] VITALS: BP 119/45
[2023-06-16 06:28] VITALS: BP 112/52
[2023-06-16 07:29] VITALS: BP 119/49
[2023-06-16 16:26] VITALS: BP 110/41
[2023-06-16 20:23] VITALS: BP 119/48
[2023-06-17 05:42] VITALS: BP 114/53
[2023-06-17 07:21] VITALS: BP 107/42
[2023-06-17 16:42] VITALS: BP 112/47
[2023-06-17 20:03] VITALS: BP 117/47
[2023-06-18 04:43] VITALS: BP 114/67
[2023-06-18 07:23] VITALS: BP 119/48
[2023-06-18 17:20] VITALS: BP 110/42
[2023-06-18 19:58] VITALS: BP 116/49
[2023-06-19 03:58] VITALS: BP 143/48
[2023-06-19 07:49] VITALS: BP 157/58
[2023-06-19 16:26] VITALS: BP 94/58
[2023-06-19 19:44] VITALS: BP 123/43
[2023-06-20 02:37] VITALS: BP 120/45
[2023-06-20 07:48] VITALS: BP 131/51
[2023-06-20 15:06] VITALS: BP 150/62
[2023-06-20 22:08] VITALS: BP 107/44
[2023-06-21 03:43] VITALS: BP 117/47
[2023-06-21 07:33] VITALS: BP 102/56
[2023-06-21 14:53] VITALS: BP 96/41
[2023-06-21 14:59] VITALS: BP 101/39
[2023-06-21 15:30] VITALS: BP 118/68
[2023-06-21 19:31] VITALS: BP 123/41
[2023-06-22 05:02] VITALS: BP 131/52
[2023-06-22 08:03] VITALS: BP 103/67
[2023-06-22 15:52] VITALS: BP 108/50
[2023-06-22 19:18] VITALS: BP 101/77
[2023-06-23 03:31] VITALS: BP 110/56
[2023-06-23 07:42] VITALS: BP 126/54
[2023-06-23 15:13] VITALS: BP 122/50
[2023-06-23 19:28] VITALS: BP 95/67
[2023-06-24 03:24] VITALS: BP 130/78
[2023-06-24 07:38] VITALS: BP 157/65
[2023-06-24 17:01] VITALS: BP 115/63
[2023-06-24 19:33] VITALS: BP 120/47
[2023-06-25 02:16] VITALS: BP 111/53
[2023-06-25 07:28] VITALS: BP 137/61
[2023-06-25 15:39] VITALS: BP 126/55
[2023-06-25 20:39] VITALS: BP 158/47
[2023-06-26 04:38] VITALS: BP 143/51
[2023-06-26 08:13] VITALS: BP 150/83
[2023-06-26 16:32] VITALS: BP 113/56
[2023-06-26 19:25] VITALS: BP 133/44
[2023-06-27 02:13] VITALS: BP 128/53
[2023-06-27 07:27] VITALS: BP 146/54
[2023-06-27 18:04] VITALS: BP 145/57
[2023-06-27 19:17] VITALS: BP 118/49
[2023-06-28 04:01] VITALS: BP 126/52
[2023-06-28 15:33] VITALS: BP 110/45
[2023-06-28 19:58] VITALS: BP 117/44
[2023-06-29 03:36] VITALS: BP 134/47
[2023-06-29 15:36] VITALS: BP 133/52
[2023-06-29 19:38] VITALS: BP 136/50
[2023-06-30 02:41] VITALS: BP 119/43
[2023-06-30 07:37] VITALS: BP 122/44
[2023-06-30 16:01] VITALS: BP 115/44
[2023-06-30 19:55] VITALS: BP 124/52
[2023-07-01 05:02] VITALS: BP 136/55
[2023-07-01 07:28] VITALS: BP 131/46
[2023-07-01 15:44] VITALS: BP 133/50
[2023-07-01 20:29] VITALS: BP 121/44
[2023-07-02 04:37] VITALS: BP 128/45
[2023-07-02 07:47] VITALS: BP 133/44
[2023-07-02 15:40] VITALS: BP 116/42
[2023-07-02 19:28] VITALS: BP 127/53
[2023-07-03 02:17] VITALS: BP 118/72
[2023-07-03 07:30] VITALS: BP 119/49
[2023-07-03 14:18] VITALS: BP 122/43
[2023-07-03 20:17] VITALS: BP 127/46
[2023-07-04 02:12] VITALS: BP 114/47
[2023-07-04 07:28] VITALS: BP 112/40
[2023-07-04 15:29] VITALS: BP 110/39
[2023-07-04 19:45] VITALS: BP 110/53
[2023-07-05 02:10] VITALS: BP 108/50
[2023-07-05 07:33] VITALS: BP 105/52
[2023-07-05 15:54] VITALS: BP 134/60
[2023-07-05 19:36] VITALS: BP 117/45
[2023-07-06 03:45] VITALS: BP 126/38
[2023-07-06 07:47] VITALS: BP 122/37
[2023-07-06 15:51] VITALS: BP 105/93
[2023-07-06 20:22] VITALS: BP 104/46
[2023-07-07 04:51] VITALS: BP 109/41
[2023-07-07 07:28] VITALS: BP 140/48
[2023-07-07 16:25] VITALS: BP 118/98
[2023-07-07 20:40] VITALS: BP 117/45
[2023-07-08 04:14] VITALS: BP 113/36
[2023-07-08 07:35] VITALS: BP 112/40
[2023-07-08 19:39] VITALS: BP 128/51
[2023-07-09 02:58] VITALS: BP 141/48
[2023-07-09 07:29] VITALS: BP 114/44
[2023-07-09 17:50] VITALS: BP 124/55
[2023-07-09 20:03] VITALS: BP 108/43
[2023-07-10 05:03] VITALS: BP 97/44
[2023-07-10 07:40] VITALS: BP 110/59
[2023-07-10 15:25] VITALS: BP 136/50
[2023-07-10 19:38] VITALS: BP 123/35
[2023-07-11 02:29] VITALS: BP 109/37
[2023-07-11 07:55] VITALS: BP 161/54
[2023-07-11 15:12] VITALS: BP 101/72
[2023-07-11 19:13] VITALS: BP 108/48
[2023-07-12 03:46] VITALS: BP 117/79
[2023-07-12 07:45] VITALS: BP 133/56
[2023-07-12 15:46] VITALS: BP 114/56
[2023-07-12 19:31] VITALS: BP 112/47
[2023-07-13 03:24] VITALS: BP 149/54
[2023-07-13 07:30] VITALS: BP 154/61
[2023-07-13 16:05] VITALS: BP 127/48
[2023-07-13 19:44] VITALS: BP 126/53
[2023-07-14 02:39] VITALS: BP 130/67
[2023-07-14 07:18] VITALS: BP 110/51
[2023-07-14 14:43] VITALS: BP 100/54
[2023-07-14 19:40] VITALS: BP 116/41
[2023-07-14 20:23] VITALS: BP 124/52
[2023-07-15 02:38] VITALS: BP 131/54
[2023-07-15 07:11] VITALS: BP 111/45
[2023-07-15 16:16] VITALS: BP 131/57
[2023-07-15 19:22] VITALS: BP 129/45
[2023-07-16 03:12] VITALS: BP 132/52
[2023-07-16 07:20] VITALS: BP 131/58
[2023-07-16 16:38] VITALS: BP 111/48
[2023-07-16 19:23] VITALS: BP 128/52
[2023-07-17 03:10] VITALS: BP 120/59
[2023-07-17 07:31] VITALS: BP 120/50
[2023-07-17 15:29] VITALS: BP 121/49
[2023-07-17 19:35] VITALS: BP 114/47
[2023-07-18 04:20] VITALS: BP 120/45
[2023-07-18 07:17] VITALS: BP 104/54
[2023-07-18 15:30] VITALS: BP 113/41
[2023-07-18 19:27] VITALS: BP 128/42
[2023-07-19 01:54] VITALS: BP 109/46
[2023-07-19 03:35] VITALS: BP 121/58
[2023-07-19 08:03] VITALS: BP 111/56
[2023-07-19 15:51] VITALS: BP 128/56
[2023-07-19 20:33] VITALS: BP 110/72
[2023-07-20 03:01] VITALS: BP 127/46
[2023-07-20 07:15] VITALS: BP 132/52
[2023-07-20 15:12] VITALS: BP 118/54
[2023-07-20 20:55] VITALS: BP 134/52
[2023-07-21 02:36] VITALS: BP 122/49
[2023-07-21 08:13] VITALS: BP 131/53
[2023-07-21] MEDS ORDERED: Acetaminophen650 M1 PO (12:59)
[2023-07-21] MEDS ORDERED: DOCU100 PO (13:00)
[2023-07-21] MEDS ORDERED: MICONAZOLE NITRATE TOP (13:01)
== END 2023-07-21 13:29 | disposition home or self-care (01) | DRG 871 ==
LOC: ER 11:10 → MEDS 15:33 → ENPENDDIS 07-21 11:04 → MEDS 07-21 13:29
PROVIDERS: Emergency Medicine; Internal Medicine; ADMIT Family Medicine
DX: A41.51 Sepsis due to Escherichia coli [E. coli] (principal); G92.8 Other toxic encephalopathy; N39.0 Urinary tract infection, site not specified; F02.818 Dementia in other diseases classified elsewhere, unspecified severity, with other behavioral disturbance; E87.0 Hyperosmolality and hypernatremia; E11.9 Type 2 diabetes mellitus without complications; G30.9 Alzheimer's disease, unspecified; J44.9 Chronic obstructive pulmonary disease, unspecified; L89.322 Pressure ulcer of left buttock, stage 2; Z66 Do not resuscitate; I10 Essential (primary) hypertension; F15.11 Other stimulant abuse, in remission; E87.6 Hypokalemia; R19.7 Diarrhea, unspecified; E86.0 Dehydration; M25.552 Pain in left hip; M25.551 Pain in right hip; R53.81 Other malaise; R29.6 Repeated falls; W18.30XA Fall on same level, unspecified, initial encounter; Z79.84 Long term (current) use of oral hypoglycemic drugs
CPT/HCPCS: 36415; 70450; 71045; 72170; 80048; 80053; 81001; 82947; 83605; 83690; 83735; 83880; 84484; 85025; 87040; 87077; 87086; 87186; 93971; 96361; 96365; 97110; 97129; 97162; 97166; 97530; 97535; 99285-25; A9270; J0696; J1650; J1815; J7030; J7050; J7120

== ENCOUNTER 2024-10-25 03:29 | Emergency (ER) | payer MEDICARE, OTHER ==
[~2024-10-25] VITALS: Ht 165.1 cm; Wt 90.7 kg
[~2024-10-25 03:29] MED LIST changes: +Acetaminophen650 M1 PO; +DOCU100 PO; +LOPERAMIDE212 PO; +MICONAZOLE NITRATE TOP; +ZYPREXA2.5 MG PO
[2024-10-25 03:34] VITALS: BP 120/65
== END 2024-10-25 05:17 | disposition home or self-care (01) ==
LOC: ER 03:29
DX: T85.692A Other mechanical complication of permanent sutures, initial encounter (principal); J44.89 Other specified chronic obstructive pulmonary disease; I10 Essential (primary) hypertension; E11.9 Type 2 diabetes mellitus without complications; Z79.899 Other long term (current) drug therapy; Z88.1 Allergy status to other antibiotic agents; Z88.8 Allergy status to other drugs, medicaments and biological substances
CPT/HCPCS: 99283

== ENCOUNTER 2025-05-01 14:06 | Emergency (ER) | payer MEDICARE, OTHER ==
[~2025-05-01] VITALS: Ht 157.5 cm; Wt 83.9 kg
[2025-05-01 15:53] VITALS: BP 122/89
--- NOTE | 2025-05-01 16:15 | NUR ---
CALL FROM DARYN SERRANO ABOUT PATIENT COMING IN BY AMBULANCE. SHE REPORTED THAT THIS PATIENT SHOULD BE A DNR. PATIENT HAS A GUARDIAN TERRELL MOTLEY. CALLED AND FILLED OUT A POLST BY PHONE. FAXED TO REGISTRY. COPY MAILED TO [facility] AND SENT TO [facility]
== END 2025-05-01 15:53 | disposition home or self-care (01) ==
LOC: ER 14:06
DX: F03.90 Unspecified dementia, unspecified severity, without behavioral disturbance, psychotic disturbance, mood disturbance, and anxiety (principal); Z66 Do not resuscitate; I10 Essential (primary) hypertension; E11.9 Type 2 diabetes mellitus without complications; J45.909 Unspecified asthma, uncomplicated; Z79.899 Other long term (current) drug therapy
CPT/HCPCS: 99283